=== PATIENT | female | born 1990 | race Caucasian/White ===

== ENCOUNTER 2017-12-04 17:57 | Emergency (ER) | payer OTHER ==
[2017-12-04 18:58] VITALS: BP 121/64
--- NOTE | 2017-12-04 19:43 | UC ---
Psychiatric Complaint HPI - HPI Summary HPI Summary: 27 year old female presents requesting refill of her duloxetine prescription. States she recently moved to the area and has not yet established with a primary care provider. Her previous PCP provider her with a 30 day supply last month but would not provide any further refills because she had not been seen in over a year. She states she has been well managed on her current dose for about 2 years. She was without her medication for about a week a month ago and did become symptomatic with some thoughts of suicide but no plan to act. States she is presently without depressed thoughts or having any SI or HI. - History Of Current Complaint Chief Complaint: UCMedRefill Stated Complaint: NEEDS MED REFILL Time Seen by Provider: 12/04/17 19:00 Hx Obtained From: Patient ?: No - IUD - Allergies/Home Medications Allergies/Adverse Reactions: Allergies Allergy/AdvReac Type Severity Reaction Status Date / Time No Known Allergies Allergy Verified 12/04/17 18:58 Home Medications: Home Medications Cholecalciferol (Vitamin D3) [Vitamin D3] 1,000 mg PO DAILY 12/04/17 [History Confirmed 12/04/17] Multivit-Min/Iron Fum/Folic AC [Sxlaf-Jxdwyiz-Jxaweoua Tablet] 1 each PO DAILY 12/04/17 [History Confirmed 12/04/17] PMH/Surg Hx/FS Hx/Imm Hx Previously Healthy: Yes Psychological History: Depression - Surgical History Surgical History: None - Family History Family History: Noncontributory - Social History Occupation: Employed Full-time Lives: Alone Alcohol Use: Rare Substance Use Type: None Smoking Status (MU): Former Smoker Review of Systems Constitutional: Negative Skin: Negative Respiratory: Negative Cardiovascular: Negative Gastrointestinal: Negative Psychological: Negative Is Patient Immunocompromised?: No All Other Systems Reviewed And Are Negative: Yes Physical Exam Triage Information Reviewed: Yes Appearance: Well-Appearing, No Pain Distress, Well-Nourished Vital Signs: Initial Vital Signs Temp 98.9 F 12/04/17 18:51 Pulse 56 12/04/17 18:51 Resp 16 12/04/17 18:51 BP 121/64 12/04/17 18:51 Pulse Ox 99 12/04/17 18:51 Vital Signs Reviewed: Yes Respiratory: Positive: Lungs clear, Normal breath sounds, No respiratory distress Cardiovascular: Positive: RRR, No Murmur, Pulses Normal, Brisk Capillary Refill Abdomen Description: Positive: Nontender, No Organomegaly, Soft Neurological Exam: Normal Psychological Exam: Normal Skin Exam: Normal Psych Complaint Course/Dx - Course Course Of Treatment: 27 year old female with history of depression presents requesting refill of duloxetine. She reports previous episode where she ran out of medications and developed depressed thought with some SI with intent to act. She has been well managed on her current regimen for over a year. Will provide a 30 day supply and provide resources to help her establish with a primary care provider. She understands that we will not be able to continue to fill her prescriptions and will need to establish with primary care. - Differential Dx/Diagnosis Provider Diagnoses: Depression Discharge - Sign-Out/Discharge Documenting (check all that apply): Patient Departure All imaging exams completed and their final reports reviewed: No Studies - Discharge Plan Condition: Stable Disposition: HOME Prescriptions: Duloxetine HCl [Cymbalta] 20 mg PO DAILY #30 capsule. Patient Education Materials: Depression (ED) Referrals: No Primary Care Phys,NOPCP [Primary Care Provider] - [facility] [Outside] () Additional Instructions: I have sent a 30 day supply of your duloxetine into the pharmacy. Be sure to continue to take this as directed. Make sure you establish with a primary care provider before you run out of medication again. You can call the [facility] Physician Referral service at [phone] to help you make this appointment or contact one of the local primary care provider offices from the list that was provided to you. - Billing Disposition and Condition Condition: STABLE Disposition: Home
== END 2017-12-04 19:47 | disposition home or self-care (01) ==
LOC: UCCORT 17:57
DX: F32.9 Major depressive disorder, single episode, unspecified (principal); Z87.891 Personal history of nicotine dependence; Z76.0 Encounter for issue of repeat prescription
CPT/HCPCS: 99202; G0463